=== PATIENT | female | born 1980 | race Caucasian/White ===

== ENCOUNTER 2016-10-16 22:30 | Inpatient (IN) | payer BC ==
[~2016-10-16] VITALS: Ht 170.2 cm; Wt 81.2 kg
--- NOTE | 2016-10-16 23:09 | Emergency Room Report ---
History of Present Illness General Chief Complaint: Abdominal Pain Source: Patient Present Illness HPI Is a 36-year-old female who presents with chief complaint of severe abdominal pain with nausea, vomiting, and diarrhea. Onset for last 2 days. Vomiting is nonbloody and nonbilious. Diarrhea is profuse and watery. It is constant. She is currently taking Keflex, Bactrim, clindamycin for a wound infection of her right ring finger. Is placed on by urgent care 2 days ago. Culture was sent already. Pain is severe, 10 out of 10. Diffuse in nature. No radiation. Nothing made it better. Nothing made it worse. Allergies: Coded Allergies: No Known Allergies (Unverified , 10/16/16) Patient History Past Medical History: see triage record, old chart reviewed Past Surgical History: other Pertinent Family History: none Social History: Denies: drug use Last Menstrual Period: 09/20/16 Now: No Immunizations: other Reviewed Nursing Documentation: PMH: Agreed, PSxH: Agreed Nursing Documentation-PMH Hx Hypertension: Yes Review of Systems Eye: Denies: blurred vision, eye pain ENT: Denies: ear pain, nose congestion, throat swelling Respiratory: Denies: cough, shortness of breath Cardiovascular: Denies: chest pain, palpitations Gastrointestinal: Reports: abdominal pain, diarrhea, nausea, vomiting Musculoskeletal: Denies: back pain, joint pain Skin: Denies: rash Neurological: Denies: headache, numbness Endocrine: Denies: increased thirst, increased urine Hematologic/Lymphatic: Denies: easy bruising All Other Systems: negative except mentioned in HPI Physical Exam Vital Signs Date Time Temp Pulse Resp B/P Pulse Ox O2 Delivery O2 Flow Rate FiO2 10/16/16 22:48 Room Air vitals unremarkable. Sp02 EP Interpretation: reviewed, normal General Appearance: well appearing, no apparent distress, alert Head: normocephalic, atraumatic Eyes: bilateral eye EOMI, bilateral eye PERRL ENT: hearing grossly normal, normal pharynx Neck: full range of motion, supple, no meningismus Respiratory: chest non-tender, lungs clear, normal breath sounds Cardiovascular #1: regular rate, rhythm, no murmur Gastrointestinal: normal bowel sounds, no mass, no organomegaly, no bruit, non- distended, tenderness - diffuse Musculoskeletal: back normal, gait/station normal, normal range of motion, other - rt index finger: wound healing. no drainage. Swelling much better per patient. Psychiatric: mood/affect normal Skin: warm/dry Medical Decision Making Diagnostic Impression: Primary Impression: Abdominal pain Qualified Codes: R10.84 - Generalized abdominal pain Additional Impression: Vomiting and diarrhea ER Course Patient presents with intractable vomiting and diarrhea. Also with intractable abdominal pain. CT scan unremarkable. Labs unremarkable. Urine showed no ketones. Denies any recent IV heroin use. Last use was over 2 months ago. Doubt that this is C. difficile colitis. She is on 3 antibiotics for abscess. Because of continual pain, would need for pain control and IV fluid. Lab Results Impression labs unremarkable CT/MRI/US Diagnostic Results CT/MRI/US Diagnostic Results : Imaging Test Ordered: CT abdomen and pelvis Impression negative per radiologist. Last Vital Signs Date Time Temp Pulse Resp B/P Pulse Ox O2 Delivery O2 Flow Rate FiO2 10/16/16 22:48 Room Air Status: improved Disposition: ADMITTED INPATIENT Condition: Serious TATO SINGH M.D. Oct 16, 2016 23:09
[2016-10-16 23:15] VITALS: BP 142/98
[2016-10-16] MEDS ORDERED: Ketorolac 30mg Inj IV ONE (23:15)
[2016-10-16] MEDS ORDERED: HYDROmorphone 1mg/ml Carpuject IVP ONE (23:15)
[2016-10-16 23:44] LABS: BASOPHILS % (AUTO) 1.8 % (0.0-2.0); EOSINOPHILS % (AUTO) 2.1 % (0.0-3.0); LYMPHOCYTES % (AUTO) 37.6 % (20.0-45.0); MEAN CORPUSCULAR HEMOGLOBIN 28.5 PG (27.0-31.0); MEAN CORPUSCULAR HGB CONC 34.1 G/DL (32.0-36.0); MEAN CORPUSCULAR VOLUME 84 FL (80-99); MEAN PLATELET VOLUME 7.3 FL (6.5-10.1); MONOCYTES % (AUTO) 8.1 % (1.0-10.0); NEUTROPHILS % (AUTO) 50.4 % (45.0-75.0); PLATELET COUNT 469 K/UL (150-450); RED BLOOD COUNT 4.16 M/UL (4.20-5.40); RED CELL DISTRIBUTION WIDTH 14.4 % (11.6-14.8); WHITE BLOOD COUNT 8.4 K/UL (4.8-10.8)
[2016-10-17] VITALS (7 sets, daily range): BP systolic 101–132; BP diastolic 64–99
[2016-10-17 00:01] LABS: ALANINE AMINOTRANSFERASE 14 U/L (3-33); ALBUMIN/GLOBULIN RATIO 1.4 (1.0-2.7); ANION GAP 19 (5-15); ASPARTATE AMINO TRANSFERASE 16 U/L (5-40); CALCIUM 9.6 mg/dL (8.6-10.2); CARBON DIOXIDE 21 mEQ/L (20-30); CHLORIDE 98 mEQ/L (98-107); CREATININE 0.8 mg/dL (0.5-0.9); GLOMERULAR FILTRATION RATE > 60 mL/min (>60); HEMOLYSIS 12; LIPASE 35 U/L (< 60); POTASSIUM 4.1 mEQ/L (3.4-4.9); SODIUM 138 mEQ/L (135-145); TOTAL PROTEIN 7.3 g/dL (6.6-8.7)
[2016-10-17] MEDS ORDERED: HYDROmorphone 1mg/ml Carpuject IVP ONE ×2 (00:15→03:45)
[2016-10-17 00:53] LABS: APPEARANCE,URINE CLEAR; KETONES,URINE NEGATIVE (NEGATIVE); LEUKOCYTE ESTERASE ,URINE NEGATIVE (NEGATIVE); NITRITE,URINE NEGATIVE (NEGATIVE); PH,URINE 5 (4.5-8.0); PROTEIN,URINE NEGATIVE (NEGATIVE); UROBILINOGEN,URINE NORMAL MG/DL (0.0-1.0)
[2016-10-17] MEDS ORDERED: Bacitracin Oint UD TOPIC ONE (03:00)
[2016-10-17] MEDS ORDERED: PRILOSEC10 M1 ORAL (03:27)
[2016-10-17] MEDS ORDERED: LEXAPRO20 MG ORAL (03:32)
[2016-10-17] MEDS ORDERED: Metoclopramide 10mg/2ml Inj IVP ONE (03:45)
[2016-10-17] MEDS ORDERED: DOXEPIN HCL100 MG ORAL (04:06)
[2016-10-17] MEDS ORDERED: BACTRIM10 ML BC (04:06)
[2016-10-17] MEDS ORDERED: TRAZODONE HCL100 MG ORAL (04:06)
[2016-10-17] MEDS ORDERED: CLONIDINE HCL0.1 MG PO (04:06)
[2016-10-17] MEDS ORDERED: GABAPENTIN600 MG ORAL (04:06)
[2016-10-17] MEDS ORDERED: CLEOCIN150 MG ORAL (04:06)
[2016-10-17] MEDS ORDERED: TOPAMAX100 MG ORAL (04:06)
[2016-10-17] MEDS ORDERED: METHYLPREDNISOLO4 M2 PO (04:06)
[2016-10-17] MEDS ORDERED: AZITHROMYCIN500 MG ORAL (04:06)
[2016-10-17] MEDS ORDERED: HYDROmorphone 1mg/ml Carpuject IVP PRN (05:15)
[2016-10-17] MEDS ORDERED: DiphenhydrAMINE 50mg/ml Inj IVP PRN (05:15)
[2016-10-17] MEDS: D5NS 1,000 ML IV SCH ×3 (06:32→20:30)
[2016-10-17] MEDS: HYDROmorphone 1mg/ml Carpuject IVP PRN ×3 (07:01→19:34)
--- NOTE | 2016-10-17 08:19 | History and Physical Report ---
DATE OF ADMISSION: 10/17/2016 CHIEF COMPLAINT: Abdominal pain, nausea, and vomiting. HISTORY OF PRESENT ILLNESS: The patient is a 36-year-old female. She has history of diverticulitis, hypertension, panic disorder, depression, questionable thyroid disorder, who presented with complaints of 3 days of intractable nausea, vomiting, and diarrhea. According to the patient, she was recently treated for bronchitis, ear infection, and Staph finger infection. Noted the onset of diarrhea, nausea, and vomiting. It has just been protracted. It has not improved. On evaluation in emergency room, her white count was 8.4. Urine was clear. Beta HCG was negative. She had CAT scan, preliminary report of that was unremarkable. the patient's persistent intractable nausea and vomiting, she is now admitted for further evaluation and care. PAST MEDICAL HISTORY: As above. PAST SURGICAL HISTORY: Includes vertical gastrectomy and lymph node dissection in the back. CURRENT MEDICATIONS: Reconciled and reviewed. ALLERGIES: Include mold and cats. FAMILY HISTORY: Noncontributory. SOCIAL HISTORY: The patient is a smoker. No alcohol. No drugs. REVIEW OF SYSTEMS: Negative except for intractable abdominal pain, nausea, and vomiting. PHYSICAL EXAMINATION: VITAL SIGNS: Temperature 98.2, blood pressure 130/99, pulse 94, respirations 16. GENERAL: The patient is in no apparent stress. HEART: Regular rate and rhythm. LUNGS: Clear. ABDOMEN: Soft, diffusely tender, but there is no rebound or guarding. EXTREMITIES: She has no clubbing, cyanosis, or edema. LABORATORY AND DIAGNOSTIC DATA: CT scan preliminary report was negative. White count 8, hemoglobin 12, hematocrit 34, and platelet count 469,000. Sodium was 138 and potassium was 4. ASSESSMENT AND PLAN: This is a pleasant female admitted with intractable abdominal pain, nausea, vomiting, diarrhea, unclear etiology. Possibilities include possible Clostridium difficile related to her recent antibiotic usage. Laboratory reviewed and her CAT scan. Intravenous fluids will be ordered. We will hydrate aggressively. PPI treatment. Antiemetic therapy. Check stool for C. difficile. IV pain medications. Kei Rodriguez M.D. DR: Jackson JOB#: [id number] CC:
[2016-10-17] MEDS: Topiramate 100mg tab ORAL SCH ×2 (08:31→20:33)
[2016-10-17] MEDS ORDERED: Pantoprazole Inj IVP SCH (09:00)
[2016-10-17 09:52] LABS: LYMPHOCYTES % (AUTO) 38.5 % (20.0-45.0); MEAN CORPUSCULAR HEMOGLOBIN 28.2 PG (27.0-31.0); MEAN CORPUSCULAR VOLUME 85 FL (80-99); MEAN PLATELET VOLUME 7.4 FL (6.5-10.1); MONOCYTES % (AUTO) 10.4 % (1.0-10.0); NEUTROPHILS % (AUTO) 45.3 % (45.0-75.0); PLATELET COUNT 396 K/UL (150-450); RED BLOOD COUNT 3.85 M/UL (4.20-5.40); WHITE BLOOD COUNT 7.3 K/UL (4.8-10.8)
[2016-10-17 10:09] LABS: ANION GAP 15 (5-15); CALCIUM 8.9 mg/dL (8.6-10.2); CARBON DIOXIDE 20 mEQ/L (20-30); CHLORIDE 102 mEQ/L (98-107); CREATININE 0.8 mg/dL (0.5-0.9); GLOMERULAR FILTRATION RATE > 60 mL/min (>60); HEMOLYSIS 10; POTASSIUM 4.3 mEQ/L (3.4-4.9); SODIUM 137 mEQ/L (135-145)
[2016-10-17] MEDS: LORazepam Inj 2mg/ml 1ml IV PRN ×3 (10:20→21:47)
--- NOTE | 2016-10-17 11:39 | General Progress Note ---
Assessment/Plan Assessment/Plan Assessment - Abd pain - N/V - Diarrhea - Chronic pain - s/p gastric reduction surgery Recommendation - Add flagyl - check stool w/u - follow exam Thank you Barbara Subjective Allergies: Coded Allergies: No Known Allergies (Unverified , 10/16/16) Objective Last 24 Hour Vital Signs Date Time Temp Pulse Resp B/P Pulse Ox O2 Delivery O2 Flow Rate FiO2 10/17/16 08:32 101/80 10/17/16 08:08 97.7 88 20 101/80 95 Room Air 10/17/16 07:31 99.0 10/17/16 04:29 99.0 94 18 104/64 92 Room Air 10/17/16 03:45 98.2 89 15 128/98 100 Room Air 10/17/16 03:45 98.4 89 15 128/98 100 Room Air 10/17/16 02:22 98.2 10/17/16 01:30 94 16 130/99 100 Room Air 10/17/16 00:49 98.2 10/17/16 00:08 98.2 10/16/16 23:15 98.4 96 16 142/98 100 Room Air 10/16/16 22:48 98.2 133 15 146/101 96 Room Air Intake and Output 10/16/16 10/17/16 19:00 07:00 Intake Total 300 ml Output Total 200 ml Balance 100 ml Intake Oral 300 ml Output Emesis 200 ml # Voids 3 Laboratory Tests 10/16/16 23:36: White Blood Count 8.4, Red Blood Count 4.16L, Hemoglobin 11.9L, Hematocrit 34.8L , Mean Corpuscular Volume 84, Mean Corpuscular Hemoglobin 28.5, Mean Corpuscular Hemoglobin Concent 34.1, Red Cell Distribution Width 14.4, Platelet Count 469H, Mean Platelet Volume 7.3, Neutrophils (%) (Auto) 50.4, Lymphocytes ( %) (Auto) 37.6, Monocytes (%) (Auto) 8.1, Eosinophils (%) (Auto) 2.1, Basophils (%) (Auto) 1.8, Sodium Level 138, Potassium Level 4.1, Chloride Level 98, Carbon Dioxide Level 21, Anion Gap 19H, Blood Urea Nitrogen 8, Creatinine 0.8, Estimat Glomerular Filtration Rate > 60, Glucose Level 102, Calcium Level 9.6, Total Bilirubin < 0.2, Aspartate Amino Transf (AST/SGOT) 16, Alanine Aminotransferase (ALT/SGPT) 14, Alkaline Phosphatase 65, Total Protein 7.3, Albumin 4.3, Globulin 3.0, Albumin/Globulin Ratio 1.4, Lipase 35 10/17/16 00:25: Urine Color Yellow, Urine Appearance Clear, Urine pH 5, Urine Specific Russell 1.015, Urine Protein Negative, Urine Glucose (UA) Negative, Urine Ketones Negative, Urine Occult Blood Negative, Urine Nitrite Negative, Urine Bilirubin Negative, Urine Urobilinogen Normal, Urine Leukocyte Esterase Negative, Urine HCG, Qualitative Negative 10/17/16 09:30: White Blood Count 7.3, Red Blood Count 3.85L, Hemoglobin 10.9L, Hematocrit 32.9L , Mean Corpuscular Volume 85, Mean Corpuscular Hemoglobin 28.2, Mean Corpuscular Hemoglobin Concent 33.0, Red Cell Distribution Width 14.0, Platelet Count 396, Mean Platelet Volume 7.4, Neutrophils (%) (Auto) 45.3, Lymphocytes (% ) (Auto) 38.5, Monocytes (%) (Auto) 10.4H, Eosinophils (%) (Auto) 4.0H, Basophils (%) (Auto) 2.0, Sodium Level 137, Potassium Level 4.3, Chloride Level 102, Carbon Dioxide Level 20, Anion Gap 15, Blood Urea Nitrogen 8, Creatinine 0.8, Estimat Glomerular Filtration Rate > 60, Glucose Level 95, Calcium Level 8.9 Height (Feet): 5 Height (Inches): 7.00 Weight (Pounds): 180 EPHRAIM CHRISTIE Oct 17, 2016 11:39
[2016-10-17] MEDS ORDERED: metroNIDAZOLE 500mg 100 ML IVPB SCH (14:00)
[2016-10-17] MEDS: metroNIDAZOLE 500mg 100 ML IVPB SCH ×2 (15:00→21:47)
[2016-10-17] MEDS ORDERED: D5NS 1000ml IV ONE (15:16)
[2016-10-17] MEDS: Metoclopramide 10mg/2ml Inj IVP PRN (15:58)
--- NOTE | 2016-10-17 20:29 | Consultation ---
DATE OF CONSULTATION: 10/17/2016 INFECTIOUS DISEASES CONSULTATION: CONSULTING PHYSICIAN: Alexa Govea M.D. REFERRING PHYSICIAN: Kei Rodriguez M.D. REASON FOR CONSULTATION: Possible Clostridium difficile colitis. HISTORY OF PRESENTING ILLNESS: This is a 36-year-old lady with history of diverticulitis, hypertension, anxiety, and panic disorder, who came in with nausea, vomiting, abdominal pain, and diarrhea. She recently had bronchitis and ear infection and was on antibiotics and Infectious Diseases consultation has been obtained for antibiotics. PAST MEDICAL HISTORY: 1. History of vertical gastrectomy. 2. History of lymph node dissection in the neck. 3. History of tummy tuck. 4. History of hypertension. 5. Diverticulitis. 6. Panic disorder. MEDICATIONS: As an inpatient, she is on trazodone, lorazepam, Dilaudid, Protonix, clonidine, Neurontin, Topamax, Reglan, Zofran, Benadryl, and Tylenol. ALLERGIES: No known drug allergies. SOCIAL HISTORY: She is a smoker. She does not drink alcohol or use drugs. FAMILY HISTORY: Noncontributory. REVIEW OF SYSTEMS: Respiratory: She had fever and chills. She does complain of some shortness of breath and cough. No chest pain. Cardiac: No chest pain. No palpitations. No dizziness. No syncope. Gastrointestinal: She has nausea and vomiting. She complains of left-sided abdominal pain and diarrhea. PHYSICAL EXAMINATION: VITAL SIGNS: Temperature is 97.7 degrees, T-max of 99 degrees, pulse of 88, respiratory rate 20, blood pressure 101/80, and O2 saturation of 95%. HEENT: Pupils are equally reactive to light and accommodation. Mouth appears clean without thrush. NECK: Supple. No adenopathy. No JVD. CARDIOVASCULAR: Regular rate and rhythm. No murmurs. LUNGS: Clear to auscultation bilaterally. No crackles. No wheezes. ABDOMEN: Soft. Left-sided lower quadrant tenderness noted. No organomegaly. EXTREMITIES: No cyanosis, no clubbing, and no edema. LABORATORY DATA: White count is 7.3, hemoglobin 10.9, hematocrit 32.9, MCV 85, and platelet count of 396,000. Sodium is 137, potassium 4.6, chloride 102, bicarbonate 20, BUN 8, creatinine 0.8, glucose 95, calcium 8.9, total bilirubin less than 0.2, AST 16, ALT 14, and alkaline phosphatase 65. Total protein is 7.3 and albumin 4.3. Lipase is 35. UA is showing LE negative and nitrite negative. DIAGNOSTIC DATA: CT of the abdomen and pelvis was unremarkable. ASSESSMENT: 1. This is a 36-year-old lady with history of hypertension and diverticulitis who comes in with abdominal pain, nausea, vomiting, and diarrhea, would be concerned regarding Clostridium difficile colitis as a possibility. 2. We would be concerned regarding recurrent diverticulitis. 3. We would also be concerned regarding gastroenteritis. PLAN: 1. We will order stool for ova and parasites. 2. We will order for stool culture. 3. We will order stool for Clostridium difficile colitis. 4. We will start the patient on cefepime and Flagyl. 5. We will follow up CT abdomen results. I would like to thank, Dr. Rodriguez for this consultation. Alexa Govea M.D. DR: Larissa JOB#: [id number] CC: Kei Rodriguez M.D.
--- NOTE | 2016-10-17 20:59 | Consultation ---
DATE OF CONSULTATION: 10/17/2016 GASTROLOGY CONSULTATION: CONSULTING PHYSICIAN: Tae Jimenez M.D. REFERRING PHYSICIAN: Kei Rodriguez M.D. CHIEF COMPLAINT: I have been asked to see this patient by Dr. Kei Rodriguez for evaluation of nausea, vomiting, diarrhea, and abdominal pain. HISTORY OF PRESENT ILLNESS: The patient is a 36-year-old white woman with a history of morbid obesity, who underwent vertical ring volume reduction gastroplasty about 10 years ago. She subsequently had pelvic abdominoplasty to remove the dense skin, which was complicated by an bladder infection, status post requiring long hospitalization. This was again many years ago. She now comes in for acute onset of nausea, vomiting, diarrhea, and abdominal pain over the past three days. The patient does not have any contact with the same complaints. Her diarrhea is nonbloody and her emesis is coffee-ground. She points to the left upper quadrant area for discomfort. The patient also has chronic back pain and for that she is on Neurontin and the patient is also on trazodone for her sleep-disorder. This patient also recently received a course of antibiotics including Bactrim and Keflex for finger Staph infection. The antibiotic was started three days prior to onset of vomiting. PAST MEDICAL HISTORY: History of morbid obesity, status post bariatric surgery, history of chronic back pain, and history of sleeping disorder, treated with trazodone. ALLERGIES: No known drug allergies. MEDICATIONS: See chart for details. FAMILY HISTORY: Noncontributory. SOCIAL HISTORY: The patient does smoke a pack of cigarettes a day. She does not drink alcohol or use drugs. She lives in [facility]. REVIEW OF SYSTEMS: Otherwise negative. PHYSICAL EXAMINATION: GENERAL: The patient is a pleasant, white woman, seen in her room. HEENT: Normocephalic and atraumatic. Sclerae are anicteric. Oropharynx is clear. NECK: Supple. CHEST: Clear to auscultation. CARDIOVASCULAR: Regular rhythm and rate. ABDOMEN: Soft with left upper quadrant abdominal tenderness to palpation without guarding or rebound. There is a lower abdominal scar, which is old. EXTREMITIES: Revealed no edema. LABORATORY DATA: Noted. ASSESSMENT: This patient presents with abdominal pain, nausea, vomiting, and diarrhea, which is somewhat acute, duration for three days. She started her antibiotics three days prior to onset of these symptoms, now Clostridium difficile is possible as somewhat more likely to come so rapidly and so much vomiting. Viral gastroenteritis would be more likely possibility. The patient's symptoms should resolve with supportive management. I will also check the patient's stool for cultures and Clostridium difficile and occult blood. IV hydration should be given as well. RECOMMENDATIONS: 1. Intravenous hydration. 2. Follow laboratory parameters and exam. 3. Check stool cultures and Clostridium difficile and occult blood. 4. Further evaluation, should symptoms persist. Thank you for asking me to participate in the care of this patient. Tae Jimenez M.D. DR: Lolly JOB#: [id number] CC:
[2016-10-17] MEDS ORDERED: TraZODone 100mg tab ORAL SCH (21:00)
[2016-10-18] VITALS: BP 117/65
[2016-10-18] MEDS: HYDROmorphone 1mg/ml Carpuject IVP PRN ×2 (00:03→10:27)
[2016-10-18] MEDS: LORazepam Inj 2mg/ml 1ml IV PRN ×2 (01:50→11:23)
[2016-10-18] MEDS: Metoclopramide 10mg/2ml Inj IVP PRN ×2 (01:57→10:26)
[2016-10-18 04:00] VITALS: BP 98/68
[2016-10-18] MEDS: D5NS 1,000 ML IV SCH ×3 (05:18→18:53)
[2016-10-18] MEDS: metroNIDAZOLE 500mg 100 ML IVPB SCH ×3 (05:18→22:57)
--- NOTE | 2016-10-18 05:35 | General Progress Note ---
Assessment/Plan Problem List: (1) Anxiety disorder ICD Codes: F41.9 - Anxiety disorder, unspecified SNOMED: 491990608 (2) Depression ICD Codes: F32.9 - Major depressive disorder, single episode, unspecified SNOMED: 43206120 (3) Dehydration ICD Codes: E86.0 - Dehydration SNOMED: 05404790 (4) Abdominal pain ICD Codes: R10.9 - Unspecified abdominal pain SNOMED: 39379890 Qualifiers: Qualified Codes: R10.84 - Generalized abdominal pain (5) Vomiting and diarrhea ICD Codes: R11.10 - Vomiting, unspecified; R19.7 - Diarrhea, unspecified SNOMED: 195960967 Status: stable, progressing Assessment/Plan cont ivf iv pain meds and antiemetics follow up cultures follow up ct- prelim report negative psych eval called Subjective ROS Limited/Unobtainable: No Constitutional: Reports: malaise, weakness HEENT: Reports: no symptoms Cardiovascular: Reports: no symptoms Respiratory: Reports: no symptoms Gastrointestinal/Abdominal: Reports: abdominal pain, diarrhea, vomiting Genitourinary: Reports: no symptoms Neurologic/Psychiatric: Reports: no symptoms Endocrine: Reports: no symptoms Hematologic/Lymphatic: Reports: no symptoms Allergies: Coded Allergies: No Known Allergies (Unverified , 10/16/16) All Systems: reviewed and negative except above Subjective slightly less abd pain, diarrhea and vomiting. c/o anxiety. GI and ID noted. Objective Last 24 Hour Vital Signs Date Time Temp Pulse Resp B/P Pulse Ox O2 Delivery O2 Flow Rate FiO2 10/18/16 04:00 97.3 77 18 98/68 98 Room Air 10/18/16 00:00 97.3 90 18 117/65 96 Room Air 10/17/16 20:34 119/69 10/17/16 20:07 99.3 102 21 119/69 99 Room Air 10/17/16 16:00 98.7 93 20 123/78 96 Room Air 10/17/16 12:55 97.9 92 19 132/77 97 Room Air 10/17/16 12:54 97.9 10/17/16 08:32 101/80 10/17/16 08:08 97.7 88 20 101/80 95 Room Air 10/17/16 07:31 99.0 Intake and Output 10/17/16 10/18/16 19:00 07:00 Intake Total 1390 ml 1300 ml Output Total 150 ml Balance 1240 ml 1300 ml Intake Oral 240 ml 500 ml IV Total 1150 ml 800 ml Output Emesis 150 ml # Voids 2 2 Laboratory Tests 10/17/16 09:30: White Blood Count 7.3, Red Blood Count 3.85L, Hemoglobin 10.9L, Hematocrit 32.9L , Mean Corpuscular Volume 85, Mean Corpuscular Hemoglobin 28.2, Mean Corpuscular Hemoglobin Concent 33.0, Red Cell Distribution Width 14.0, Platelet Count 396, Mean Platelet Volume 7.4, Neutrophils (%) (Auto) 45.3, Lymphocytes (% ) (Auto) 38.5, Monocytes (%) (Auto) 10.4H, Eosinophils (%) (Auto) 4.0H, Basophils (%) (Auto) 2.0, Sodium Level 137, Potassium Level 4.3, Chloride Level 102, Carbon Dioxide Level 20, Anion Gap 15, Blood Urea Nitrogen 8, Creatinine 0.8, Estimat Glomerular Filtration Rate > 60, Glucose Level 95, Calcium Level 8.9 Height (Feet): 5 Height (Inches): 7.00 Weight (Pounds): 180 General Appearance: WD/WN, alert Neck: supple Cardiovascular: regular rhythm Respiratory/Chest: lungs clear Abdomen: normal bowel sounds, non tender, soft, no organomegaly Edema: no edema noted Arm (L), no edema noted Arm (R), no edema noted Leg (L), no edema noted Leg (R), no edema noted Pedal (L), no edema noted Pedal (R), no edema noted Generalized TONA SANCHEZ Oct 18, 2016 05:35
[2016-10-18 07:16] LABS: ALANINE AMINOTRANSFERASE 9 U/L (3-33); ALBUMIN/GLOBULIN RATIO 1.2 (1.0-2.7); ANION GAP 11 (5-15); ASPARTATE AMINO TRANSFERASE 11 U/L (5-40); CALCIUM 8.4 mg/dL (8.6-10.2); CARBON DIOXIDE 22 mEQ/L (20-30); CHLORIDE 107 mEQ/L (98-107); CREATININE 0.6 mg/dL (0.5-0.9); GLOMERULAR FILTRATION RATE > 60 mL/min (>60); HEMOLYSIS 6; POTASSIUM 3.7 mEQ/L (3.4-4.9); SODIUM 140 mEQ/L (135-145); TOTAL PROTEIN 5.3 g/dL (6.6-8.7)
[2016-10-18 08:00] VITALS: BP 108/64
[2016-10-18] MEDS: Topiramate 100mg tab ORAL SCH ×2 (10:27→20:23)
--- NOTE | 2016-10-18 11:19 | Infectious Diseases Prog Note ---
Assessment/Plan Assessment/Plan antibiotics : cefepime, flagyl A 1. ? c.diff colitis ? gastroenteritis ? diverticulitis 2. HTN P 1. continue cefepime, flagyl 2. will follow up cultures Subjective Constitutional: Denies: chills, fever Respiratory: Reports: dry cough, shortness of breath Gastrointestinal/Abdominal: Reports: nausea, vomiting, Denies: diarrhea Musculoskeletal: Reports: pain - in abdomen Allergies: Coded Allergies: No Known Allergies (Unverified , 10/16/16) Objective Vital Signs Last 24 Hour Vital Signs Date Time Temp Pulse Resp B/P Pulse Ox O2 Delivery O2 Flow Rate FiO2 10/18/16 08:59 108/64 10/18/16 08:00 96.8 71 18 108/64 98 Room Air 10/18/16 04:00 97.3 77 18 98/68 98 Room Air 10/18/16 00:00 97.3 90 18 117/65 96 Room Air 10/17/16 20:34 119/69 10/17/16 20:07 99.3 102 21 119/69 99 Room Air 10/17/16 16:00 98.7 93 20 123/78 96 Room Air 10/17/16 12:55 97.9 92 19 132/77 97 Room Air 10/17/16 12:54 97.9 Height (Feet): 5 Height (Inches): 7.00 Weight (Pounds): 180 Respiratory/Chest: lungs clear Cardiovascular: normal rate, regular rhythm, no gallop/murmur Abdomen: tender - left side Extremities: no edema Laboratory Tests Test 10/18/16 05:00 Sodium Level 140 mEQ/L (135-145) Potassium Level 3.7 mEQ/L (3.4-4.9) Chloride Level 107 mEQ/L (98-107) Carbon Dioxide Level 22 mEQ/L (20-30) Anion Gap 11 (5-15) Blood Urea Nitrogen 5 mg/dL (7-23) L Creatinine 0.6 mg/dL (0.5-0.9) Estimat Glomerular Filtration Rate > 60 mL/min (>60) Glucose Level 82 mg/dL (74-106) Calcium Level 8.4 mg/dL (8.6-10.2) L Total Bilirubin < 0.2 mg/dL (0.0-1.2) Aspartate Amino Transf (AST/SGOT) 11 U/L (5-40) Alanine Aminotransferase (ALT/SGPT) 9 U/L (3-33) Alkaline Phosphatase 49 U/L (35-104) Total Protein 5.3 g/dL (6.6-8.7) L Albumin 2.9 g/dL (3.5-5.2) L Globulin 2.4 g/dL Albumin/Globulin Ratio 1.2 (1.0-2.7) SERA WALDROP Oct 18, 2016 11:18
[2016-10-18 12:00] VITALS: BP 109/65
--- NOTE | 2016-10-18 12:21 | Consultation ---
History of Present Illness General Chief Complaint: Abdominal Pain Present Illness HPI 36-year-old female with history of diverticulitis, hypertension, panic disorder , depression, questionable thyroid disorder, who presented with complaints of 3 days of intractable nausea, vomiting, and diarrhea. The pt is presenting with depressed mood, anhedonia, insomnia, sever anxiety and psychomotor agitation. the pt has been on Doxepin which improves her insomnia. The pt denied suicidal ideation. no manic or psychotic sxs currently or in the past. Allergies: Coded Allergies: No Known Allergies (Unverified , 10/16/16) Medication History Scheduled Azithromycin (Azithromycin), Unknown Dose ORAL DAILY, (Reported) Doxepin Hcl (Doxepin Hcl*), 100 MG ORAL BEDTIME, (Reported) Escitalopram Oxalate* (Lexapro*), 30 MG ORAL DAILY, (Reported) Gabapentin* (Gabapentin*), 600 MG ORAL THREE TIMES A DAY, (Reported) Omeprazole Magnesium (Prilosec), 40 MG ORAL BID, (Reported) Topiramate (Topamax), 100 MG ORAL EVERY 12 HOURS, (Reported) Trazodone Hcl* (Desyrel*), 100 MG ORAL BEDTIME, (Reported) Miscellaneous Medications Clindamycin HCl (Clindamycin HCl), Unknown Dose ORAL, (Reported) Clonidine Hcl (Clonidine Hcl), 0.1 MG PO, (Reported) Methylprednisolone (Methylprednisolone), Unknown Dose PO, (Reported) Trimethoprim/Sulfamethoxazole (Bactrim), Unknown Dose BC, (Reported) Patient History Healthcare decision maker Resuscitation status Full Code Advanced Directive on File No Past Medical/Surgical History Past Medical/Surgical History: (1) Dehydration (2) Anxiety disorder (3) Depression (4) Abdominal pain (5) Vomiting and diarrhea Family History Family History: (1) Anxiety disorder (2) Depression Review of Systems Constitutional: Reports: weakness Gastrointestinal: Reports: nausea, vomiting Psychiatric: Reports: anxiety, depressed feelings, emotional problems, prior hx Physical Exam General Appearance: alert, moderate distress, thin Neurologic: alert, oriented x 3, responsive, depressed affect Last 24 Hour Vital Signs Date Time Temp Pulse Resp B/P Pulse Ox O2 Delivery O2 Flow Rate FiO2 10/18/16 08:59 108/64 10/18/16 08:00 96.8 71 18 108/64 98 Room Air 10/18/16 04:00 97.3 77 18 98/68 98 Room Air 10/18/16 00:00 97.3 90 18 117/65 96 Room Air 10/17/16 20:34 119/69 10/17/16 20:07 99.3 102 21 119/69 99 Room Air 10/17/16 16:00 98.7 93 20 123/78 96 Room Air 10/17/16 12:55 97.9 92 19 132/77 97 Room Air 10/17/16 12:54 97.9 Intake and Output 10/17/16 10/18/16 19:00 07:00 Intake Total 1390 ml 2650 ml Output Total 150 ml Balance 1240 ml 2650 ml Intake Oral 240 ml 500 ml IV Total 1150 ml 1150 ml Tube Feeding 1000 ml Output Emesis 150 ml # Voids 2 4 Laboratory Tests Test 10/18/16 05:00 Sodium Level 140 mEQ/L (135-145) Potassium Level 3.7 mEQ/L (3.4-4.9) Chloride Level 107 mEQ/L (98-107) Carbon Dioxide Level 22 mEQ/L (20-30) Anion Gap 11 (5-15) Blood Urea Nitrogen 5 mg/dL (7-23) L Creatinine 0.6 mg/dL (0.5-0.9) Estimat Glomerular Filtration Rate > 60 mL/min (>60) Glucose Level 82 mg/dL (74-106) Calcium Level 8.4 mg/dL (8.6-10.2) L Total Bilirubin < 0.2 mg/dL (0.0-1.2) Aspartate Amino Transf (AST/SGOT) 11 U/L (5-40) Alanine Aminotransferase (ALT/SGPT) 9 U/L (3-33) Alkaline Phosphatase 49 U/L (35-104) Total Protein 5.3 g/dL (6.6-8.7) L Albumin 2.9 g/dL (3.5-5.2) L Globulin 2.4 g/dL Albumin/Globulin Ratio 1.2 (1.0-2.7) Height (Feet): 5 Height (Inches): 7.00 Weight (Pounds): 180 Medications Current Medications Medications (Trade) Dose Ordered Sig/Markell Route PRN Reason Start Time Stop Time Status Last Admin Dose Admin Acetaminophen (Tylenol) 650 mg Q4H PRN ORAL Mild Pain/Temp > 100.5 10/17/16 05:15 11/16/16 05:14 10/18/16 01:50 Bisacodyl (Dulcolax) 10 mg DAILYPRN PRN RECTAL Constipation 10/18/16 12:15 11/17/16 12:14 UNV Cefepime HCl 1 gm/ Dextrose 50 ml @ 100 mls/hr Q12HR IVPB 10/17/16 12:30 10/24/16 12:29 10/18/16 10:26 Clonidine HCl (Catapres) 0.1 mg EVERY 12 HOURS ORAL 10/17/16 09:00 11/16/16 08:59 Dextrose/Sodium Chloride (D5ns) 1,000 ml @ 125 mls/hr Q8H IV 10/17/16 05:15 11/16/16 05:14 10/18/16 05:18 Diphenhydramine HCl (Benadryl) 25 mg Q4H PRN IVP Itching 10/17/16 05:15 11/16/16 05:14 Escitalopram Oxalate (Lexapro) 30 mg DAILY ORAL 10/19/16 09:00 11/18/16 08:59 UNV Gabapentin (Neurontin) 600 mg THREE TIMES A DAY ORAL 10/17/16 09:00 11/16/16 08:59 10/18/16 10:26 Hydromorphone HCl (Dilaudid) 2 mg Q4H PRN IVP Severe Pain (Pain Scale 7-10) 10/18/16 13:15 10/25/16 13:14 UNV Lorazepam 1 mg 1 mg Q4H PRN IV For Anxiety 10/17/16 10:00 10/24/16 09:59 10/18/16 11:23 Magnesium Hydroxide (Mom) 30 ml TIDPRN PRN ORAL Constipation 10/18/16 12:15 11/17/16 12:14 UNV Metoclopramide HCl (Reglan) 10 mg Q8H PRN IVP Nausea & Vomiting 10/17/16 06:30 11/16/16 06:29 10/18/16 10:26 Metronidazole (Flagyl) 100 ml @ 100 mls/hr EVERY 8 HOURS IVPB 10/17/16 14:00 10/24/16 13:59 10/18/16 05:18 Nicotine (Nicoderm) 1 patch DAILY@1800 TDERMAL 10/17/16 19:00 11/16/16 18:59 Ondansetron HCl (Zofran) 4 mg Q4H PRN IVP Nausea & Vomiting 10/17/16 05:15 11/16/16 05:14 10/17/16 21:47 Pantoprazole (Protonix) 40 mg EVERY 12 HOURS ORAL 10/17/16 09:00 11/16/16 08:59 10/18/16 10:27 Topiramate (Topamax) 100 mg EVERY 12 HOURS ORAL 10/17/16 09:00 11/16/16 08:59 10/18/16 10:27 Trazodone HCl (Desyrel) 100 mg BEDTIME ORAL 10/17/16 21:00 11/16/16 20:59 10/17/16 21:47 Assessment/Plan Status: not improved Assessment/Plan MDD, anxiety disorder. panic disorder. - doxepin 100mg po qhs -dc ativan -start klonopin 2mg qhs. -change trazodone to prn Hannah Henriquez M.D. Oct 18, 2016 12:21
--- NOTE | 2016-10-18 12:56 | Diagnostic Imaging Report ---
Clinical Indication: Abdominal pain Technique: No oral contrast utilized, per emergency room physician request IV administration nonionic contrast. Venous phase spiral acquisition obtained through the abdomen and pelvis. Multiplanar reconstructions were generated. Total dose length product 775 mGycm. CTDIvol(s) 15 mGy Comparison: None Findings: The appendix is not clearly demonstrated, but there are no findings to suggest acute appendicitis. There is a diverticulum of the proximal transverse colon noted. No evidence of diverticulitis. No small bowel distention. No free or loculated intraperitoneal air or fluid. There is evidence of prior gastric surgery. The distal esophagus and duodenum are unremarkable. The gallbladder is unremarkable, other than being somewhat distended. The liver, bile ducts, pancreas, spleen, adrenals, kidneys are unremarkable. The included lung bases demonstrate some scarring on the right, are otherwise clear. The bones are unremarkable. Impression: No acute or significant abnormality Right basilar pulmonary parenchymal scarring Evidence of prior gastric surgery This agrees with the preliminary interpretation provided overnight by [facility]erad[facility] service. The CT scanner at [facility] is accredited by the [employer] and the scans are performed using protocols designed to limit radiation exposure to as low as reasonably achievable to attain images of sufficient resolution adequate for diagnostic evaluation.
[2016-10-18] MEDS ORDERED: Milk of Magnesia 30ml Ud ORAL PRN (14:30)
--- NOTE | 2016-10-18 15:58 | General Progress Note ---
Assessment/Plan Assessment/Plan Assessment - Abd pain - improving - N/V- resolved - Diarrhea - resolved - Chronic pain - s/p gastric reduction surgery Recommendation - flagyl - check stool w/u - follow exam Subjective Allergies: Coded Allergies: No Known Allergies (Unverified , 10/16/16) Subjective Feels better no N/V tolerating liquids Objective Last 24 Hour Vital Signs Date Time Temp Pulse Resp B/P Pulse Ox O2 Delivery O2 Flow Rate FiO2 10/18/16 12:00 95.4 80 18 109/65 98 Room Air 10/18/16 08:59 108/64 10/18/16 08:00 96.8 71 18 108/64 98 Room Air 10/18/16 04:00 97.3 77 18 98/68 98 Room Air 10/18/16 00:00 97.3 90 18 117/65 96 Room Air 10/17/16 20:34 119/69 10/17/16 20:07 99.3 102 21 119/69 99 Room Air 10/17/16 16:00 98.7 93 20 123/78 96 Room Air Intake and Output 10/17/16 10/18/16 19:00 07:00 Intake Total 1390 ml 2650 ml Output Total 150 ml Balance 1240 ml 2650 ml Intake Oral 240 ml 500 ml IV Total 1150 ml 1150 ml Tube Feeding 1000 ml Output Emesis 150 ml # Voids 2 4 Laboratory Tests 10/18/16 05:00: Sodium Level 140, Potassium Level 3.7, Chloride Level 107, Carbon Dioxide Level 22, Anion Gap 11, Blood Urea Nitrogen 5L, Creatinine 0.6, Estimat Glomerular Filtration Rate > 60, Glucose Level 82, Calcium Level 8.4L, Total Bilirubin < 0.2, Aspartate Amino Transf (AST/SGOT) 11, Alanine Aminotransferase (ALT/SGPT) 9 , Alkaline Phosphatase 49, Total Protein 5.3L, Albumin 2.9L, Globulin 2.4, Albumin/Globulin Ratio 1.2 Height (Feet): 5 Height (Inches): 7.00 Weight (Pounds): 180 Objective WDWN NCAT supple CTA RRR Soft NT ND no edema Nonfocal EPHRAIM CHRISTIE Oct 18, 2016 15:58
[2016-10-18 16:00] VITALS: BP 116/61
[2016-10-18] MEDS ORDERED: Tubing IV Secondary IV ONE (17:22)
[2016-10-18] MEDS ORDERED: D5NS 1000ml IV ONE (17:56)
[2016-10-18 19:00] VITALS: BP 130/78
[2016-10-18] MEDS ORDERED: TraZODone 100mg tab ORAL PRN (21:00)
[2016-10-18] MEDS: Doxepin 25mg Cap ORAL SCH (22:34)
[2016-10-19] VITALS: BP 146/91
[2016-10-19] MEDS: LORazepam 1mg tab ORAL PRN ×3 (01:46→21:07)
[2016-10-19 03:53] VITALS: BP 132/88
[2016-10-19] MEDS: D5NS 1,000 ML IV SCH ×3 (05:07→21:08)
[2016-10-19] MEDS: metroNIDAZOLE 500mg 100 ML IVPB SCH ×3 (05:07→21:30)
[2016-10-19 08:00] VITALS: BP 149/89
[2016-10-19] MEDS: Topiramate 100mg tab ORAL SCH ×2 (09:09→20:11)
--- NOTE | 2016-10-19 09:18 | General Progress Note ---
Assessment/Plan Problem List: (1) Anxiety disorder ICD Codes: F41.9 - Anxiety disorder, unspecified SNOMED: 737816331 (2) Depression ICD Codes: F32.9 - Major depressive disorder, single episode, unspecified SNOMED: 67433315 (3) Dehydration ICD Codes: E86.0 - Dehydration SNOMED: 39102261 (4) Abdominal pain ICD Codes: R10.9 - Unspecified abdominal pain SNOMED: 23507270 Qualifiers: Qualified Codes: R10.84 - Generalized abdominal pain (5) Vomiting and diarrhea ICD Codes: R11.10 - Vomiting, unspecified; R19.7 - Diarrhea, unspecified SNOMED: 186155714 Status: stable, not improved, unchanged Assessment/Plan cont ivf iv pain meds and antiemetics follow up cultures follow up ct- prelim report negative message left with pmd to discuss case surgery eval Subjective ROS Limited/Unobtainable: No Constitutional: Reports: malaise, weakness HEENT: Reports: no symptoms Cardiovascular: Reports: no symptoms Respiratory: Reports: no symptoms Gastrointestinal/Abdominal: Reports: diarrhea, vomiting Genitourinary: Reports: no symptoms Neurologic/Psychiatric: Reports: no symptoms Endocrine: Reports: no symptoms Hematologic/Lymphatic: Reports: no symptoms Allergies: Coded Allergies: No Known Allergies (Unverified , 10/16/16) All Systems: reviewed and negative except above Subjective ?increased abd pain, slightly diarrhea and vomiting. c/o anxiety. GI and ID noted. Objective Last 24 Hour Vital Signs Date Time Temp Pulse Resp B/P Pulse Ox O2 Delivery O2 Flow Rate FiO2 10/19/16 08:27 132/88 10/19/16 08:00 97.9 114 20 149/89 95 Room Air 10/19/16 05:37 97.4 10/19/16 03:53 97.4 90 18 132/88 98 Room Air 10/19/16 00:00 97.6 110 18 146/91 98 Room Air 10/18/16 19:00 97.3 89 20 130/78 97 Room Air 10/18/16 16:00 96.8 97 20 116/61 97 Room Air 10/18/16 12:00 95.4 80 18 109/65 98 Room Air Intake and Output 10/18/16 10/19/16 19:00 07:00 Intake Total 1265 ml 1820 ml Balance 1265 ml 1820 ml Intake Oral 240 ml 695 ml IV Total 1025 ml 1125 ml # Voids 2 6 Height (Feet): 5 Height (Inches): 7.00 Weight (Pounds): 180 General Appearance: WD/WN, alert Neck: supple Cardiovascular: normal rate, regular rhythm Respiratory/Chest: lungs clear Abdomen: normal bowel sounds, non tender, soft, no organomegaly Edema: no edema noted Arm (L), no edema noted Arm (R), no edema noted Leg (L), no edema noted Leg (R), no edema noted Pedal (L), no edema noted Pedal (R), no edema noted 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
--- NOTE | 2016-10-19 10:50 | Infectious Diseases Prog Note ---
Assessment/Plan Assessment/Plan A 1. R/O c.difficile colitis, ? gastroenteritis 2. HPN 3. recent purulent cellulitis of 4th right finger P 1. continue cefepime, Flagyl 2. will follow up cultures Subjective ROS Limited/Unobtainable: No Gastrointestinal/Abdominal: Reports: nausea, other - abdomina pain in left side , vomiting Skin: Reports: other Musculoskeletal: Reports: pain Allergies: Coded Allergies: No Known Allergies (Unverified , 10/16/16) Objective Vital Signs Last 24 Hour Vital Signs Date Time Temp Pulse Resp B/P Pulse Ox O2 Delivery O2 Flow Rate FiO2 10/19/16 08:27 132/88 10/19/16 08:00 97.9 114 20 149/89 95 Room Air 10/19/16 05:37 97.4 10/19/16 03:53 97.4 90 18 132/88 98 Room Air 10/19/16 00:00 97.6 110 18 146/91 98 Room Air 10/18/16 19:00 97.3 89 20 130/78 97 Room Air 10/18/16 16:00 96.8 97 20 116/61 97 Room Air 10/18/16 12:00 95.4 80 18 109/65 98 Room Air Height (Feet): 5 Height (Inches): 7.00 Weight (Pounds): 180 General Appearance: no acute distress HEENT: mucous membranes moist Respiratory/Chest: lungs clear Cardiovascular: normal rate Abdomen: soft, non tender Extremities: no edema Skin: other - R fourth finger erythema Current Medications Medications (Trade) Dose Ordered Sig/Markell Route PRN Reason Start Time Stop Time Status Last Admin Dose Admin Acetaminophen (Tylenol) 650 mg Q4H PRN ORAL Mild Pain/Temp > 100.5 10/17/16 05:15 11/16/16 05:14 10/18/16 01:50 Bisacodyl (Dulcolax) 10 mg DAILYPRN PRN RECTAL Constipation 10/18/16 14:30 11/17/16 14:29 Cefepime HCl 1 gm/ Dextrose 50 ml @ 100 mls/hr Q12HR IVPB 10/17/16 12:30 10/24/16 12:29 10/19/16 09:08 Clonazepam (KlonoPIN) 2 mg DAILY ORAL 10/19/16 09:00 10/26/16 08:59 10/19/16 08:27 Clonidine HCl (Catapres) 0.1 mg EVERY 12 HOURS ORAL 10/17/16 09:00 11/16/16 08:59 10/19/16 08:27 Dextrose/Sodium Chloride (D5ns) 1,000 ml @ 125 mls/hr Q8H IV 10/17/16 05:15 11/16/16 05:14 10/19/16 05:07 Diphenhydramine HCl (Benadryl) 25 mg Q4H PRN IVP Itching 10/17/16 05:15 11/16/16 05:14 Doxepin HCl (SINEquan) 100 mg QHS ORAL 10/18/16 21:00 11/17/16 20:59 10/18/16 22:34 Escitalopram Oxalate (Lexapro) 30 mg DAILY ORAL 10/19/16 09:00 11/18/16 08:59 10/19/16 08:27 Gabapentin (Neurontin) 600 mg THREE TIMES A DAY ORAL 10/17/16 09:00 11/16/16 08:59 10/19/16 08:26 Hydromorphone HCl (Dilaudid) 2 mg Q4H PRN IVP Severe Pain (Pain Scale 7-10) 10/18/16 14:27 10/25/16 14:26 10/19/16 09:09 Lorazepam (Ativan) 2 mg Q6H PRN ORAL For Anxiety 10/18/16 23:30 10/25/16 23:29 10/19/16 01:46 Magnesium Hydroxide (Mom) 30 ml TIDPRN PRN ORAL Constipation 10/18/16 14:30 11/17/16 14:29 Metronidazole (Flagyl) 100 ml @ 100 mls/hr EVERY 8 HOURS IVPB 10/17/16 14:00 10/24/16 13:59 10/19/16 05:07 Nicotine (Nicoderm) 1 patch DAILY@1800 TDERMAL 10/17/16 19:00 11/16/16 18:59 10/18/16 18:43 Ondansetron HCl (Zofran) 4 mg Q4H PRN IVP Nausea & Vomiting 10/17/16 05:15 11/16/16 05:14 10/19/16 08:28 Pantoprazole (Protonix) 80 mg EVERY 12 HOURS ORAL 10/19/16 21:00 11/18/16 20:59 Topiramate 100 mg 100 mg EVERY 12 HOURS ORAL 10/17/16 09:00 11/16/16 08:59 10/19/16 09:09 VAMSHI ALTMAN Oct 19, 2016 10:50
[2016-10-19] MEDS ORDERED: ALPRAZolam 0.5mg tab ORAL ONE (11:00)
[2016-10-19 12:00] VITALS: BP 133/80
--- NOTE | 2016-10-19 14:48 | General Progress Note ---
Progress Note Progress Note Chart reviewed, pt examined, CT reviewed with radiologist. Impression: abdominal pain of unknown etiology, no evidence of intestinal obstruction. Plan : we should check with GI staff to see if atrial of antispasmodics is indicated Rosendo Delacruz MD Oct 19, 2016 14:48
[2016-10-19 15:50] VITALS: BP 131/90
[2016-10-19 20:00] VITALS: BP 148/75
--- NOTE | 2016-10-19 20:19 | Consultation ---
DATE OF CONSULTATION: 10/19/2016 SURGICAL CONSULTATION REASON FOR CONSULTATION: Nausea, vomiting, diarrhea and abdominal pain. HISTORY OF PRESENT ILLNESS: This is a 36-year-old, white female, who presented with the onset of nausea and vomiting four days ago. She denied any symptoms of fever or chills. She reported some left-sided abdominal pain. The patient has a complex history of having had bariatric surgery 12 years ago in the form of a vertical ring volume reduction gastroplasty. She subsequently underwent a pelvic abdominoplasty, which was complicated by a bladder infection in a retained subcutaneous drain resulting in sepsis. She has problems with chronic back pain as well. PAST MEDICAL HISTORY: The patient has a history of sleep disorder and anxiety. PAST SURGICAL HISTORY: Previous surgery vertical gastroplasty and abdominoplasty. ALLERGIES: None known. MEDICATIONS: Lexapro and Prilosec. She is also occasionally taking clonidine for hypertension. SOCIAL HISTORY: Tobacco, one pack per day x20 years. Alcohol, none. She denies any use of illicit drugs. FAMILY HISTORY: Positive for hyperlipidemia. The patient's mother has a mental illness. REVIEW OF SYSTEMS: Includes occasional headaches. She reports occasional problems with bronchitis. She states she had a history of hepatitis C that was treated with six months of interferon therapy. There is no history of renal disorders. She is a 3, para 0, AB 3 female. Last menstrual period was started during this hospitalization. PHYSICAL EXAMINATION: GENERAL: Reveals a well-developed and well-nourished white female. VITAL SIGNS: Temperature 97.8 degrees, blood pressure 133/80, pulse 105, and respirations 18. HEENT: Normocephalic. Pupils are equal and reactive to light. There was no scleral icterus. NECK: Supple without adenopathy. LUNGS: Clear. HEART: Showed a regular rhythm without murmurs or gallops. ABDOMEN: Abdomen was flat and soft. There is a healed low transverse scar from her abdominoplasty. There was no tenderness or guarding in any quadrant. There were no masses. EXTREMITIES: Showed no clubbing, cyanosis, or edema. Peripheral pulses were present. LABORATORY STUDIES: CBC from two days ago showed a white blood count of 7300, hemoglobin 10.9 g%, hematocrit 32.9%, and platelet count 296,000. The serum electrolytes showed a sodium of 140, potassium 3.7, chloride 107, bicarbonate 22, BUN 5, creatinine 0.6, and glucose 82. Alkaline phosphatase was normal at 49. SGOT was normal at 9. SGPT was normal at 11. Lipase was normal at 35, on admission. A CT scan of the abdomen and pelvis was reviewed with the radiologist. There are changes in the gastric area due to the vertical gastroplasty. There was no evidence of intestinal obstruction. Urinalysis was negative. IMPRESSION: Abdominal pain of unknown etiology, suspect narcotic dependent. PLAN: There is no need for surgical intervention at this point. She will not need a gastroenterology follow up. She may benefit from a trial of antispasmodic medication. Rosendo Delacruz M.D. DR: CRAMEN JOB#: [id number] CC:
[2016-10-19] MEDS: Doxepin 25mg Cap ORAL SCH (22:00)
--- NOTE | 2016-10-19 22:32 | General Progress Note ---
Assessment/Plan Assessment/Plan Assessment - Abd pain - N/V - Diarrhea - Chronic pain - s/p gastric reduction surgery Recommendation - flagyl - check stool w/u - follow exam - will consider outpatient egd/colon Subjective Allergies: Coded Allergies: No Known Allergies (Unverified , 10/16/16) Subjective says she is starving wants to advance to regular diet but also wants w/u to find out why "so miserable" getting dilaudid Objective Last 24 Hour Vital Signs Date Time Temp Pulse Resp B/P Pulse Ox O2 Delivery O2 Flow Rate FiO2 10/19/16 20:10 148/75 10/19/16 20:00 96.8 113 20 148/75 100 Room Air 10/19/16 15:50 97.0 129 18 131/90 98 Room Air 10/19/16 12:00 97.8 105 18 133/80 100 Room Air 10/19/16 08:27 132/88 10/19/16 08:00 97.9 114 20 149/89 95 Room Air 10/19/16 05:37 97.4 10/19/16 03:53 97.4 90 18 132/88 98 Room Air 10/19/16 00:00 97.6 110 18 146/91 98 Room Air Intake and Output 10/18/16 10/19/16 19:00 07:00 Intake Total 1265 ml 1820 ml Balance 1265 ml 1820 ml Intake Oral 240 ml 695 ml IV Total 1025 ml 1125 ml # Voids 2 6 Height (Feet): 5 Height (Inches): 7.00 Weight (Pounds): 180 Objective WDWN NCAT supple CTA RRR Soft ND, some (L) sided TTP no edema Nonfocal EPHRAIM CHRISTIE Oct 19, 2016 22:32
[2016-10-20] VITALS (7 sets, daily range): BP systolic 108–157; BP diastolic 56–106
[2016-10-20] MEDS: D5NS 1,000 ML IV SCH ×3 (04:52→21:06)
[2016-10-20] MEDS: metroNIDAZOLE 500mg 100 ML IVPB SCH ×3 (05:01→21:11)
[2016-10-20] MEDS: LORazepam 1mg tab ORAL PRN ×4 (05:49→20:41)
--- NOTE | 2016-10-20 08:01 | General Progress Note ---
Assessment/Plan Problem List: (1) Anxiety disorder ICD Codes: F41.9 - Anxiety disorder, unspecified SNOMED: 965180692 (2) Depression ICD Codes: F32.9 - Major depressive disorder, single episode, unspecified SNOMED: 40839685 (3) Dehydration ICD Codes: E86.0 - Dehydration SNOMED: 83851864 (4) Abdominal pain ICD Codes: R10.9 - Unspecified abdominal pain SNOMED: 03734674 Qualifiers: Qualified Codes: R10.84 - Generalized abdominal pain (5) Vomiting and diarrhea ICD Codes: R11.10 - Vomiting, unspecified; R19.7 - Diarrhea, unspecified SNOMED: 581934265 Status: stable Assessment/Plan cont ivf iv pain meds(limits set) and antiemetics follow up cultures follow up ct- prelim report negative surgery input appreciated- no surgical issues PMD requesting egd/colon- pt is agreeable Subjective ROS Limited/Unobtainable: No Constitutional: Reports: malaise, weakness HEENT: Reports: no symptoms Cardiovascular: Reports: no symptoms Respiratory: Reports: no symptoms Gastrointestinal/Abdominal: Reports: abdominal pain, diarrhea, nausea, vomiting Genitourinary: Reports: no symptoms Neurologic/Psychiatric: Reports: anxiety Endocrine: Reports: no symptoms Hematologic/Lymphatic: Reports: no symptoms Allergies: Coded Allergies: No Known Allergies (Unverified , 10/16/16) All Systems: reviewed and negative except above Subjective ?increased abd pain, slightly less diarrhea and vomiting. c/o anxiety. GI and ID noted. d/w pts PMD . Pt just out of detox/rehab for heroine. has not felt well since receiving treatment for hep c(interferon) Objective Last 24 Hour Vital Signs Date Time Temp Pulse Resp B/P Pulse Ox O2 Delivery O2 Flow Rate FiO2 10/20/16 05:06 97.7 10/20/16 04:00 97.5 83 20 127/73 96 Room Air 10/20/16 00:00 97.7 77 20 108/56 98 Room Air 10/19/16 20:10 148/75 10/19/16 20:00 96.8 113 20 148/75 100 Room Air 10/19/16 15:50 97.0 129 18 131/90 98 Room Air 10/19/16 12:00 97.8 105 18 133/80 100 Room Air 10/19/16 08:27 132/88 10/19/16 08:00 97.9 114 20 149/89 95 Room Air Intake and Output 10/19/16 10/20/16 19:00 07:00 Intake Total 1805 ml 1575 ml Balance 1805 ml 1575 ml Intake Oral 480 ml 500 ml IV Total 1325 ml 1075 ml # Voids 3 8 # Bowel Movements 1 Height (Feet): 5 Height (Inches): 7.00 Weight (Pounds): 180 Objective General Appearance: WD/WN, alert Neck: supple Cardiovascular: normal rate, regular rhythm Respiratory/Chest: lungs clear Abdomen: normal bowel sounds, non tender, soft, no organomegaly Edema: no edema noted Arm (L), no edema noted Arm (R), no edema noted Leg (L), no edema noted Leg (R), no edema noted Pedal (L), no edema noted Pedal (R), no edema noted 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
[2016-10-20] MEDS: MS Contin 15mg tab ORAL SCH (08:32)
[2016-10-20] MEDS: Topiramate 100mg tab ORAL SCH ×2 (08:33→21:05)
--- NOTE | 2016-10-20 10:02 | General Progress Note ---
Progress Note Progress Note Surgery: Patient seen and examined at bedside. no acute events. still with mild abdominal cramping. currently no nausea or emesis. tolerating liquids. + flatus Afebrile, HD stable (tachy at times), abdomen soft, nd, left sided tenderness, multiple prior surgical scars noted. A/P: 36 F w/ abdominal pain, nausea, emesis, diarrhea. Hx of IVDA, sleeve gastrectomy, tummy tuck, breast lift, Hep C s/p INF treatment, digit staph infection which required oral abx. Reviewed CT scan and no obstruction or abnormality seen. No acute surgical intervention necessary IV hydration Follow up stool cultures Appreciate GI and ID input Thank you for allowing us to participate in this patients care. will follow with you. Liu Sotomayor Oct 20, 2016 10:02
--- NOTE | 2016-10-20 10:25 | Infectious Diseases Prog Note ---
Assessment/Plan Assessment/Plan A 1. R/O c.difficile colitis, ? gastroenteritis 2. HPN 3. recent purulent cellulitis of 4th right finger P 1.discontinue cefepime, Flagyl, add Fluconazole 2. will follow up cultures Subjective ROS Limited/Unobtainable: No Respiratory: Reports: other - congestion Gastrointestinal/Abdominal: Reports: nausea, vomiting Genitourinary: Reports: other - feels has yeast infection Allergies: Coded Allergies: No Known Allergies (Unverified , 10/16/16) Objective Vital Signs Last 24 Hour Vital Signs Date Time Temp Pulse Resp B/P Pulse Ox O2 Delivery O2 Flow Rate FiO2 10/20/16 09:32 97.5 10/20/16 08:33 133/82 10/20/16 08:16 97.5 117 21 133/82 99 Room Air 10/20/16 05:06 97.7 10/20/16 04:00 97.5 83 20 127/73 96 Room Air 10/20/16 00:00 97.7 77 20 108/56 98 Room Air 10/19/16 20:10 148/75 10/19/16 20:00 96.8 113 20 148/75 100 Room Air 10/19/16 15:50 97.0 129 18 131/90 98 Room Air 10/19/16 12:00 97.8 105 18 133/80 100 Room Air Height (Feet): 5 Height (Inches): 7.00 Weight (Pounds): 180 General Appearance: no acute distress HEENT: mucous membranes moist Respiratory/Chest: lungs clear Cardiovascular: normal rate Abdomen: soft, non tender Extremities: no edema Skin: other - erythema of 4th right finger Neurologic/Psychiatric: alert, oriented x 3, responsive Current Medications Medications (Trade) Dose Ordered Sig/Markell Route PRN Reason Start Time Stop Time Status Last Admin Dose Admin Acetaminophen (Tylenol) 650 mg Q6H PRN ORAL Mild Pain/Temp > 100.5 10/19/16 11:00 11/18/16 10:59 10/19/16 14:13 Bisacodyl (Dulcolax) 10 mg DAILYPRN PRN RECTAL Constipation 10/18/16 14:30 11/17/16 14:29 Cefepime HCl 1 gm/ Dextrose 50 ml @ 100 mls/hr Q12HR IVPB 10/17/16 12:30 10/24/16 12:29 10/20/16 09:10 Clonazepam (KlonoPIN) 2 mg BID ORAL 10/20/16 09:00 10/27/16 08:59 10/20/16 08:32 Clonidine HCl (Catapres) 0.1 mg EVERY 12 HOURS ORAL 10/17/16 09:00 11/16/16 08:59 10/20/16 08:33 Dextrose/Sodium Chloride (D5ns) 1,000 ml @ 125 mls/hr Q8H IV 10/17/16 05:15 11/16/16 05:14 10/20/16 04:52 Diphenhydramine HCl (Benadryl) 25 mg Q4H PRN IVP Itching 10/17/16 05:15 11/16/16 05:14 10/20/16 04:59 Doxepin HCl (SINEquan) 100 mg QHS ORAL 10/18/16 21:00 11/17/16 20:59 10/18/16 22:34 Escitalopram Oxalate (Lexapro) 30 mg DAILY ORAL 10/19/16 09:00 11/18/16 08:59 10/20/16 08:32 Gabapentin (Neurontin) 600 mg THREE TIMES A DAY ORAL 10/17/16 09:00 11/16/16 08:59 10/20/16 08:33 Hydromorphone HCl (Dilaudid) 2 mg Q4H PRN IVP Severe Pain (Pain Scale 7-10) 10/18/16 14:27 10/25/16 14:26 10/20/16 09:35 Lorazepam (Ativan) 2 mg Q6H PRN ORAL For Anxiety 10/18/16 23:30 10/25/16 23:29 10/20/16 05:49 Magnesium Hydroxide (Mom) 30 ml TIDPRN PRN ORAL Constipation 10/18/16 14:30 11/17/16 14:29 Metronidazole (Flagyl) 100 ml @ 100 mls/hr EVERY 8 HOURS IVPB 10/17/16 14:00 10/24/16 13:59 10/20/16 05:01 Morphine Sulfate (MS Contin) 15 mg DAILY ORAL 10/20/16 09:00 10/27/16 08:59 10/20/16 08:32 Nicotine (Nicoderm) 1 patch DAILY@1800 TDERMAL 10/17/16 19:00 11/16/16 18:59 10/19/16 17:58 Ondansetron HCl (Zofran) 4 mg Q4H PRN IVP Nausea & Vomiting 10/17/16 05:15 11/16/16 05:14 10/19/16 08:28 Pantoprazole (Protonix) 80 mg EVERY 12 HOURS ORAL 10/19/16 21:00 11/18/16 20:59 10/20/16 08:43 Topiramate 100 mg 100 mg EVERY 12 HOURS ORAL 10/17/16 09:00 11/16/16 08:59 10/20/16 08:33 VAMSHI ALTMAN Oct 20, 2016 10:25
[2016-10-20] MEDS ORDERED: D5NS 1000ml IV ONE (10:57)
--- NOTE | 2016-10-20 11:02 | General Progress Note ---
Assessment/Plan Assessment/Plan Assessment - Abd pain - N/V - Diarrhea - Chronic pain - s/p gastric reduction surgery Recommendation - flagyl - check stool w/u - follow exam - EGD in am - colonoscopy at later date or outpt Subjective Allergies: Coded Allergies: No Known Allergies (Unverified , 10/16/16) Subjective tolerating po solids no vomiting wants to proceed with EGD tomorrow wants to hold colonoscopy to next week Objective Last 24 Hour Vital Signs Date Time Temp Pulse Resp B/P Pulse Ox O2 Delivery O2 Flow Rate FiO2 10/20/16 10:05 97.5 10/20/16 09:32 97.5 10/20/16 08:33 133/82 10/20/16 08:16 97.5 117 21 133/82 99 Room Air 10/20/16 04:00 97.5 83 20 127/73 96 Room Air 10/20/16 00:00 97.7 77 20 108/56 98 Room Air 10/19/16 20:10 148/75 10/19/16 20:00 96.8 113 20 148/75 100 Room Air 10/19/16 15:50 97.0 129 18 131/90 98 Room Air 10/19/16 12:00 97.8 105 18 133/80 100 Room Air Intake and Output 10/19/16 10/20/16 19:00 07:00 Intake Total 1805 ml 1700 ml Balance 1805 ml 1700 ml Intake Oral 480 ml 500 ml IV Total 1325 ml 1200 ml # Voids 3 8 # Bowel Movements 1 Height (Feet): 5 Height (Inches): 7.00 Weight (Pounds): 180 Objective WDWN NCAT supple CTA RRR Soft ND, some (L) sided TTP no edema Nonfocal EPHRAIM CHRISTIE Oct 20, 2016 11:02
[2016-10-20] MEDS: Fluconazole 100mg tab ORAL SCH (12:06)
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
[2016-10-20] MEDS: Doxepin 25mg Cap ORAL SCH (21:00)
[2016-10-21] VITALS (11 sets, daily range): BP systolic 87–131; BP diastolic 41–92
[2016-10-21] MEDS: D5NS 1,000 ML IV SCH ×3 (04:28→21:15)
[2016-10-21] MEDS: metroNIDAZOLE 500mg 100 ML IVPB SCH (05:05)
--- NOTE | 2016-10-21 06:26 | General Progress Note ---
Progress Note Progress Note Patient seen and examined this AM. Sleeping comfortable. No complaints. States abdominal pain improved. no n/v/f/c. Micro results with negative c diff and normal allan thus far. tolerating liquids. +flatus and loose BM. A/P: 36 F w/ abd pain, nausea, emesis, diarrhea. No pathology noted on imaging , micro negative thus far, labs normal, clinically improving. No acute surgical intervention necessary. Continue current care and management Will follow with you. Liu Sotomayor Oct 21, 2016 06:26
[2016-10-21] MEDS ORDERED: LR 1000ml ONE (07:00)
[2016-10-21] MEDS ORDERED: Lidocaine 1% MPF 10mg/ml 5ml ONE (07:00)
[2016-10-21] MEDS ORDERED: Propofol 10mg/ml 20ml IV ONE (07:00)
[2016-10-21] MEDS ORDERED: NS 550ML IV ONE (07:07)
--- NOTE | 2016-10-21 07:13 | Pre-Procedure Note/Attestation ---
Pre-Procedure Note/Attestation Complete Prior to Procedure Planned Procedure: not applicable Procedure Narrative: egd Indications for Procedure Pre-Operative Diagnosis: abd pain Attestation I attest that I discussed the nature of the procedure; its benefits; risks and complications; and alternatives (and the risks and benefits of such alternatives ), prior to the procedure, with the patient (or the patient's legal community health program representative). I attest that, if there was a reasonable possibility of needing a blood transfusion, the patient (or the patient's legal community health program representative) was given the [facility] standardized written summary, pursuant to the [place] Jesse Blood Safety Act ([place] Health and Safety Code # 1645, as amended). I attest that I re-evaluated the patient just prior to the surgery and that there has been no change in the patient's H&P, except as documented below: EPHRAIM CHRISTIE Oct 21, 2016 07:13
[2016-10-21] MEDS ORDERED: fentaNYL 100 mcg/2 mL IV PRN (07:15)
[2016-10-21] MEDS ORDERED: Metoclopramide 10mg/2ml Inj IVP PRN (07:15)
--- NOTE | 2016-10-21 07:26 | General Progress Note ---
Assessment/Plan Assessment/Plan Assessment - Abd pain - N/V - improved - Diarrhea - stool Cx and C Diff (-) - Chronic pain - s/p gastric reduction surgery Recommendation - follow exam - EGD - colonoscopy at later date or outpt PROCEDURE ADDENDUM EGD: s/p sleeve gastrectomy small 1-2 cm Hiatal hernia mild GERD with linear erosions Biopsies obtained Subjective Allergies: Coded Allergies: No Known Allergies (Unverified , 10/16/16) Subjective seen in GI lab tolerating PO Objective Last 24 Hour Vital Signs Date Time Temp Pulse Resp B/P Pulse Ox O2 Delivery O2 Flow Rate FiO2 10/21/16 06:37 78 18 98/74 100 10/21/16 04:00 97.7 20 87/41 95 Room Air 10/20/16 21:05 157/106 10/20/16 20:00 98.9 111 23 127/83 99 Room Air 10/20/16 17:02 97.2 102 19 157/106 Bi-pap 100.0 10/20/16 14:21 96.9 10/20/16 13:34 96.9 10/20/16 12:07 96.9 129 21 120/79 99 Room Air 10/20/16 09:32 97.5 10/20/16 08:33 133/82 10/20/16 08:16 97.5 117 21 133/82 99 Room Air Intake and Output 10/20/16 10/21/16 19:00 07:00 Intake Total 2070 ml 1335 ml Output Total 400 ml Balance 2070 ml 935 ml Intake Oral 720 ml 360 ml IV Total 1350 ml 975 ml Output Urine Total 400 ml # Voids 2 4 # Bowel Movements 1 Height (Feet): 5 Height (Inches): 7.00 Weight (Pounds): 179 Objective WDWN NCAT supple CTA RRR Soft ND, some (L) sided TTP no edema Nonfocal EPHRAIM CHRISTIE Oct 21, 2016 07:26
--- NOTE | 2016-10-21 07:28 | Endoscopy Procedure Note ---
Endoscopy Procedure Note Indication for Procedure: abd pain Procedures Performed: EGD Operative Findings/Diagnosis: s/p sleeve gastrectomy, HARINI, HH Anesthesiologist: see notes Anesthesia: MAC Medication Given: see anesthesia record Implant(s) used?: No 50 yrs or older w/o bx or poly: Not Applicable 10yrs. F/U not recommended: Not Applicable If not recommended, why?: EPHRAIM CHRISTIE Oct 21, 2016 07:28
--- NOTE | 2016-10-21 07:30 | Brief Operative Note ---
Immediate Post Operative Note Operative Note Chief Complaint: pain Pre-op Diagnosis: abd pain Procedure: egdbx Post-op Diagnosis: EGD: s/p sleeve gastrectomy small 1-2 cm Hiatal hernia mild GERD with linear erosions Surgeon: Barbara Anesthesiologist: see notes Anesthesia: MAC Specimen: yes Complications: none Condition: unstable Estimated Blood Loss: none Implant(s) used?: No EPHRAIM CHRISTIE Oct 21, 2016 07:30
--- NOTE | 2016-10-21 07:37 | Immediate Post-Op Evaluation ---
Immediate Post-Op Evalulation Immediate Post-Op Evalulation Procedure: EGD Date of Evaluation: Oct 21, 2016 Time of Evaluation: 07:36 IV Fluids: 200 Blood Pressure Systolic: 111 Blood Pressure Diastolic: 65 Pulse Rate: 70 Respiratory Rate: 14 O2 Sat by Pulse Oximetry: 98 Nausea: No Vomiting: No Complications none Patient Status: awake, patent Drug: none ARTURO PEARL CRNA Oct 21, 2016 07:37
--- NOTE | 2016-10-21 07:40 | Anethesia Preoperative Eval ---
Anesthesia Pre-op PMH/ROS General Date of Evaluation: Oct 21, 2016 Time of Evaluation: 07:15 Anesthesiologist: rea ASA Score: ASA 2 Mallampati Score Class I : Soft palate, uvula, fauces, pillars visible Class II: Soft palate, uvula, fauces visible Class III: Soft palate, base of uvula visible Class IV: Only hard plate visible Mallampati Classification: Class II Surgeon: lana Diagnosis: abdominal pain Surgical Procedure: EGD Anesthesia History: none Social History: smoking Family History: no anesthesia problems Allergies: Coded Allergies: No Known Allergies (Unverified , 10/16/16) Medications: see eMAR Past Medical History Cardiovascular: Reports: HTN Pulmonary: Reports: other - smoking Gastrointestinal/Genitourinary: Denies: CRI, ESRD, GERD, other Neurologic/Psychiatric: Reports: depression/anxiety, other - panic disorder Endocrine: Denies: DM, hypothyroidism, other, steroids HEENT: Denies: [place] (L), [place] (R), cataract (L), cataract (R), glaucoma, other Hematology/Immune: Denies: DVT, anemia, bleeding disorder, other Musculoskeletal/Integumentary: Denies: DDD, DJD, OA, RA, edema, other PSxH Narrative: gastric sleeve Anesthesia Pre-op Phys. Exam Physician Exam Last Vital Signs Date Time Temp Pulse Resp B/P Pulse Ox O2 Delivery O2 Flow Rate FiO2 10/21/16 06:37 78 18 98/74 100 10/21/16 04:00 97.7 Room Air 10/20/16 17:02 100.0 Constitutional: NAD Neurologic: CN 2-12 intact Cardiovascular: RRR Respiratory: CTA Gastrointestinal: S/NT/ND Airway Exam Mallampati Classification 3 Mallampati Score: Class II MO: full Neck: thin ROM: full Dentures: no lower, no upper Anesthesia Pre-op A/P Risk Assessment & Plan Plan: mac Status Change Before Surgery: No Pre-Antibiotics Drug: none ARTURO PEARL CRNA Oct 21, 2016 07:40
--- NOTE | 2016-10-21 08:43 | 48 Hour Post Anesthesia Eval ---
Post Anesthesia Evaluation Procedure: EGD Date of Evaluation: Oct 21, 2016 Time of Evaluation: 08:42 Blood Pressure Systolic: 113 0: 64 Pulse Rate: 68 Respiratory Rate: 14 O2 Sat by Pulse Oximetry: 99 Airway: patent Nausea: No Vomiting: No Hydration Status: adequate Mental Status/LOC: patient returned to baseline Post-Anesthesia Complications: none ARTURO PEARL CRNA Oct 21, 2016 08:43
--- NOTE | 2016-10-21 10:04 | General Progress Note ---
Assessment/Plan Problem List: (1) Anxiety disorder ICD Codes: F41.9 - Anxiety disorder, unspecified SNOMED: 626272176 (2) Depression ICD Codes: F32.9 - Major depressive disorder, single episode, unspecified SNOMED: 40582692 (3) Dehydration ICD Codes: E86.0 - Dehydration SNOMED: 19886290 (4) Abdominal pain ICD Codes: R10.9 - Unspecified abdominal pain SNOMED: 34271976 Qualifiers: Qualified Codes: R10.84 - Generalized abdominal pain (5) Vomiting and diarrhea ICD Codes: R11.10 - Vomiting, unspecified; R19.7 - Diarrhea, unspecified SNOMED: 156971647 Status: stable, progressing Assessment/Plan po trial dc planning if tolerates po follow up with pmd Subjective ROS Limited/Unobtainable: No Constitutional: Reports: weakness HEENT: Reports: no symptoms Cardiovascular: Reports: no symptoms Respiratory: Reports: no symptoms Gastrointestinal/Abdominal: Reports: abdominal pain Genitourinary: Reports: no symptoms Neurologic/Psychiatric: Reports: no symptoms Endocrine: Reports: no symptoms Hematologic/Lymphatic: Reports: no symptoms Allergies: Coded Allergies: No Known Allergies (Unverified , 10/16/16) All Systems: reviewed and negative except above Subjective s/p egd- shows gastritis. less pain med requirements. has not eaten today. still very sleepy. just back from egd Objective Last 24 Hour Vital Signs Date Time Temp Pulse Resp B/P Pulse Ox O2 Delivery O2 Flow Rate FiO2 10/21/16 08:43 68 14 99 10/21/16 07:49 68 15 113/64 97 Room Air 10/21/16 07:45 97.4 65 14 111/63 97 Room Air 10/21/16 07:40 69 13 110/63 96 Room Air 10/21/16 07:37 70 14 98 10/21/16 07:35 72 15 109/65 99 Nasal Cannula 3.0 10/21/16 07:30 97.6 65 14 111/65 99 Nasal Cannula 3.0 10/21/16 06:37 78 18 98/74 100 10/21/16 04:00 97.7 20 87/41 95 Room Air 10/20/16 21:05 157/106 10/20/16 20:00 98.9 111 23 127/83 99 Room Air 10/20/16 17:02 97.2 102 19 157/106 Bi-pap 100.0 10/20/16 14:21 96.9 10/20/16 13:34 96.9 10/20/16 12:07 96.9 129 21 120/79 99 Room Air Intake and Output 10/20/16 10/21/16 19:00 07:00 Intake Total 2070 ml 1335 ml Output Total 400 ml Balance 2070 ml 935 ml Intake Oral 720 ml 360 ml IV Total 1350 ml 975 ml Output Urine Total 400 ml # Voids 2 4 # Bowel Movements 1 Height (Feet): 5 Height (Inches): 7.00 Weight (Pounds): 179 Objective General Appearance: WD/WN, alert Neck: supple Cardiovascular: normal rate, regular rhythm Respiratory/Chest: lungs clear Abdomen: normal bowel sounds, non tender, soft, no organomegaly Edema: no edema noted Arm (L), no edema noted Arm (R), no edema noted Leg (L), no edema noted Leg (R), no edema noted Pedal (L), no edema noted Pedal (R), no edema noted Generalized Neurologic: solution sales senior executive II-XII grossly normal, no motor/sensory deficits, alert, responsive TONA SANCHEZ Oct 21, 2016 10:04
[2016-10-21] MEDS ORDERED: MS CONTIN15 MG ORAL (10:07)
[2016-10-21] MEDS ORDERED: PERCOCET 10-321 EAC1 PO (10:07)
[2016-10-21 10:37] LABS: BASOPHILS % (AUTO) 2.4 % (0.0-2.0); EOSINOPHILS % (AUTO) 6.3 % (0.0-3.0); LYMPHOCYTES % (AUTO) 21.4 % (20.0-45.0); MEAN CORPUSCULAR HEMOGLOBIN 27.9 PG (27.0-31.0); MEAN CORPUSCULAR VOLUME 87 FL (80-99); MEAN PLATELET VOLUME 8.3 FL (6.5-10.1); MONOCYTES % (AUTO) 7.8 % (1.0-10.0); NEUTROPHILS % (AUTO) 62.1 % (45.0-75.0); PLATELET COUNT 219 K/UL (150-450); RED BLOOD COUNT 4.26 M/UL (4.20-5.40); RED CELL DISTRIBUTION WIDTH 15.3 % (11.6-14.8); WHITE BLOOD COUNT 5.4 K/UL (4.8-10.8)
[2016-10-21 10:56] LABS: ALANINE AMINOTRANSFERASE 10 U/L (3-33); ALBUMIN/GLOBULIN RATIO 1.3 (1.0-2.7); ANION GAP 16 (5-15); ASPARTATE AMINO TRANSFERASE 16 U/L (5-40); CALCIUM 8.6 mg/dL (8.6-10.2); CARBON DIOXIDE 19 mEQ/L (20-30); CHLORIDE 104 mEQ/L (98-107); CREATININE 0.7 mg/dL (0.5-0.9); GLOMERULAR FILTRATION RATE > 60 mL/min (>60); HEMOLYSIS 23; SODIUM 139 mEQ/L (135-145); TOTAL PROTEIN 5.4 g/dL (6.6-8.7)
[2016-10-21] MEDS: Fluconazole 100mg tab ORAL SCH (11:43)
[2016-10-21] MEDS: MS Contin 15mg tab ORAL SCH (11:44)
[2016-10-21] MEDS: Topiramate 100mg tab ORAL SCH ×2 (11:44→21:33)
--- NOTE | 2016-10-21 11:49 | Infectious Diseases Prog Note ---
Assessment/Plan Assessment/Plan antibiotics : fluconazole, flagyl A 1. gastroenteritis improving 2. HTN P 1. d/c fluconazole 2. d/c flagyl 3. observe off antibiotics Subjective ROS Limited/Unobtainable: Yes Allergies: Coded Allergies: No Known Allergies (Unverified , 10/16/16) Objective Vital Signs Last 24 Hour Vital Signs Date Time Temp Pulse Resp B/P Pulse Ox O2 Delivery O2 Flow Rate FiO2 10/21/16 08:43 68 14 99 10/21/16 07:49 68 15 113/64 97 Room Air 10/21/16 07:45 97.4 65 14 111/63 97 Room Air 10/21/16 07:40 69 13 110/63 96 Room Air 10/21/16 07:37 70 14 98 10/21/16 07:35 72 15 109/65 99 Nasal Cannula 3.0 10/21/16 07:30 97.6 65 14 111/65 99 Nasal Cannula 3.0 10/21/16 06:37 78 18 98/74 100 10/21/16 04:00 97.7 20 87/41 95 Room Air 10/20/16 21:05 157/106 10/20/16 20:00 98.9 111 23 127/83 99 Room Air 10/20/16 17:02 97.2 102 19 157/106 Bi-pap 100.0 10/20/16 14:21 96.9 10/20/16 13:34 96.9 10/20/16 12:07 96.9 129 21 120/79 99 Room Air Height (Feet): 5 Height (Inches): 7.00 Weight (Pounds): 179 Respiratory/Chest: lungs clear Cardiovascular: normal rate, regular rhythm, no gallop/murmur Abdomen: soft, non tender Extremities: no edema Microbiology Date/Time Source Procedure Growth Status 10/20/16 09:30 Stool Clostridium difficile Toxin Assay - Final Complete 10/18/16 16:30 Stool Ova and Parasites - Final Complete 10/18/16 16:30 Stool Ova and Parasite Result 1 - Final Complete 10/18/16 16:30 Stool Stool Culture - Preliminary NO SALMONELLA,SHIGELLA,OR CAMPYLOBACT... Resulted Laboratory Tests Test 10/21/16 10:15 White Blood Count 5.4 K/UL (4.8-10.8) Red Blood Count 4.26 M/UL (4.20-5.40) Hemoglobin 11.9 G/DL (12.0-16.0) L Hematocrit 37.1 % (37.0-47.0) Mean Corpuscular Volume 87 FL (80-99) Mean Corpuscular Hemoglobin 27.9 PG (27.0-31.0) Mean Corpuscular Hemoglobin Concent 32.0 G/DL (32.0-36.0) Red Cell Distribution Width 15.3 % (11.6-14.8) H Platelet Count 219 K/UL (150-450) Mean Platelet Volume 8.3 FL (6.5-10.1) Neutrophils (%) (Auto) 62.1 % (45.0-75.0) Lymphocytes (%) (Auto) 21.4 % (20.0-45.0) Monocytes (%) (Auto) 7.8 % (1.0-10.0) Eosinophils (%) (Auto) 6.3 % (0.0-3.0) H Basophils (%) (Auto) 2.4 % (0.0-2.0) H Sodium Level 139 mEQ/L (135-145) Potassium Level 4.0 mEQ/L (3.4-4.9) Chloride Level 104 mEQ/L (98-107) Carbon Dioxide Level 19 mEQ/L (20-30) L Anion Gap 16 (5-15) H Blood Urea Nitrogen 5 mg/dL (7-23) L Creatinine 0.7 mg/dL (0.5-0.9) Estimat Glomerular Filtration Rate > 60 mL/min (>60) Glucose Level 97 mg/dL (74-106) Calcium Level 8.6 mg/dL (8.6-10.2) Total Bilirubin < 0.2 mg/dL (0.0-1.2) Aspartate Amino Transf (AST/SGOT) 16 U/L (5-40) Alanine Aminotransferase (ALT/SGPT) 10 U/L (3-33) Alkaline Phosphatase 49 U/L (35-104) Total Protein 5.4 g/dL (6.6-8.7) L Albumin 3.1 g/dL (3.5-5.2) L Globulin 2.3 g/dL Albumin/Globulin Ratio 1.3 (1.0-2.7) SERA WALDROP Oct 21, 2016 11:49
[2016-10-21] MEDS ORDERED: D5NS 1000ml IV ONE ×2 (14:58→15:17)
[2016-10-21] MEDS: LORazepam 1mg tab ORAL PRN (17:15)
--- NOTE | 2016-10-21 21:19 | Operative Note - Dictated ---
DATE OF OPERATION: 10/21/2016 PROCEDURE: Upper gastrointestinal endoscopy with enteroscopy and biopsy. SURGEON: Tae Jimenez M.D. ANESTHESIA: Please see the separate anesthesiologist notes for details. PRE-ENDOSCOPIC DIAGNOSIS: Vomiting. POST-ENDOSCOPIC DIAGNOSES: 1. Status post sleeve gastrectomy as expected. 2. A 1 cm hiatal hernia. 3. Mild gastroesophageal reflux disease with mild ring erosions of the lower esophagus. 4. Status post biopsy of the gastric remnant. DESCRIPTION OF PROCEDURE: The procedure, its risks, indications, alternatives, and possible complications were explained to the patient and informed consent was obtained. The patient was then sedated in the left lateral decubitus position. A diagnostic upper endoscope was introduced through the oropharynx and advanced to the duodenum. in the third portion of the duodenum without difficulty. The endoscope was then gradually withdrawn and the mucosa was examined carefully. Examination of the upper gastric mucosa revealed a gastrectomy anatomy with a 1 cm hiatal hernia and some linear esophageal reflux erosions above the gastroesophageal junction. Biopsies of the antrum and midesophagus were sent to pathology for review. The endoscope was removed. The patient was sent to recovery in good condition. COMPLICATIONS: None. RECOMMENDATIONS: 1. Resume oral diet. 2. Follow up biopsy results. 3. Proton pump inhibitor. Tae Jimneez M.D. DR: ZEINA JOB#: [id number] CC:
[2016-10-21] MEDS: Doxepin 25mg Cap ORAL SCH (21:39)
[2016-10-22] VITALS: BP 124/82
[2016-10-22] MEDS: D5NS 1,000 ML IV SCH ×2 (01:29→13:15)
[2016-10-22 04:00] VITALS: BP 109/61
[2016-10-22] MEDS: LORazepam 1mg tab ORAL PRN (06:15)
[2016-10-22 08:00] VITALS: BP 115/64
--- NOTE | 2016-10-22 08:39 | General Progress Note ---
Progress Note Progress Note Pt had EGD yest. showed small hiatal hernia, mild GERD Sleeping well, VSsLaboratory Tests 10/21/16 10:15: White Blood Count 5.4, Red Blood Count 4.26, Hemoglobin 11.9L, Hematocrit 37.1, Mean Corpuscular Volume 87, Mean Corpuscular Hemoglobin 27.9, Mean Corpuscular Hemoglobin Concent 32.0, Red Cell Distribution Width 15.3H, Platelet Count 219, Mean Platelet Volume 8.3, Neutrophils (%) (Auto) 62.1, Lymphocytes (%) (Auto) 21.4, Monocytes (%) (Auto) 7.8, Eosinophils (%) (Auto) 6.3H, Basophils (%) (Auto ) 2.4H, Sodium Level 139, Potassium Level 4.0, Chloride Level 104, Carbon Dioxide Level 19L, Anion Gap 16H, Blood Urea Nitrogen 5L, Creatinine 0.7, Estimat Glomerular Filtration Rate > 60, Glucose Level 97, Calcium Level 8.6, Total Bilirubin < 0.2, Aspartate Amino Transf (AST/SGOT) 16, Alanine Aminotransferase (ALT/SGPT) 10, Alkaline Phosphatase 49, Total Protein 5.4L, Albumin 3.1L, Globulin 2.3, Albumin/Globulin Ratio 1.3 no acute surgical concerns MICHELLE MCFARLAND Oct 22, 2016 08:39
[2016-10-22] MEDS: Topiramate 100mg tab ORAL SCH (09:02)
[2016-10-22] MEDS: MS Contin 15mg tab ORAL SCH (09:02)
--- NOTE | 2016-10-22 09:29 | Discharge Summary ---
DATE OF ADMISSION: 10/17/2016 DATE OF DISCHARGE: 10/22/2016 ADMITTING DIAGNOSES: 1. Abdominal pain. 2. Nausea. 3. Vomiting. 4. Diarrhea. 5. Possible gastroenteritis. DISCHARGE DIAGNOSES: 1. Abdominal pain. 2. Nausea. 3. Vomiting. 4. Diarrhea. 5. Possible gastroenteritis. 6. History of depression. 7. Anxiety. 8. Narcotics dependence. 9. History of substance abuse. HISTORY: The patient is a 36-year-old female. She has a history of a sleeve gastrectomy. The patient had complaints of abdominal pain, nausea, and vomiting. Symptoms are consistent with the gastroenteritis. She had a CAT scan of the abdomen was unremarkable. Stool cultures were negative. The patient continued to have abdominal pain required high doses of intravenous Dilaudid, was later able to contact her primary care doctor and her psychiatrist who is her addiction psychiatrist. The patient apparently had a long history of heroin abuse and has been in and out of drug rehabilitation. Recently, the patient was approached about her prior history. She became defensive and upset. I informed to her that a diagnostic workup was unremarkable and pain medicines will be discontinued. The patient had an upper endoscopy that showed only mild gastritis. Intravenous pain medications were discontinued. The patient refused to leave the hospital. Once again, she was informed that she is medically stable. She has been instructed to follow up with her PMD. I will call the PMD if the . She has any other acute issues. DISCHARGE MEDICATIONS: Please see discharge medication list for discharge medications. DIET: Regular diet. ACTIVITIES: Ad-ross. Kei Rodriguez M.D. DR: JERAMY JOB#: [id number] CC:
--- NOTE | 2016-10-22 10:01 | Infectious Diseases Prog Note ---
Assessment/Plan Assessment/Plan antibiotics : none A 1. gastroenteritis improving 2. HTN P 1. observe off antibiotics Subjective ROS Limited/Unobtainable: Yes Allergies: Coded Allergies: No Known Allergies (Unverified , 10/16/16) Objective Vital Signs Last 24 Hour Vital Signs Date Time Temp Pulse Resp B/P Pulse Ox O2 Delivery O2 Flow Rate FiO2 10/22/16 08:00 97.5 68 18 115/64 95 Room Air 10/22/16 04:00 97.3 50 20 109/61 96 Room Air 10/22/16 00:00 98.1 92 20 124/82 95 Room Air 10/21/16 21:33 120/70 10/21/16 20:40 98.1 10/21/16 20:00 98.2 88 22 120/70 94 Room Air 10/21/16 17:51 98.1 91 22 131/92 94 Room Air 10/21/16 16:00 98.1 91 22 131/92 94 Room Air 10/21/16 13:59 98.4 10/21/16 12:43 98.4 10/21/16 12:13 98.4 10/21/16 11:52 98.4 75 20 113/63 96 Room Air Height (Feet): 5 Height (Inches): 7.00 Weight (Pounds): 179 Respiratory/Chest: lungs clear Cardiovascular: normal rate, regular rhythm, no gallop/murmur Abdomen: soft, non tender Extremities: no edema Microbiology Date/Time Source Procedure Growth Status 10/20/16 09:30 Stool Clostridium difficile Toxin Assay - Final Complete Laboratory Tests Test 10/21/16 10:15 White Blood Count 5.4 K/UL (4.8-10.8) Red Blood Count 4.26 M/UL (4.20-5.40) Hemoglobin 11.9 G/DL (12.0-16.0) L Hematocrit 37.1 % (37.0-47.0) Mean Corpuscular Volume 87 FL (80-99) Mean Corpuscular Hemoglobin 27.9 PG (27.0-31.0) Mean Corpuscular Hemoglobin Concent 32.0 G/DL (32.0-36.0) Red Cell Distribution Width 15.3 % (11.6-14.8) H Platelet Count 219 K/UL (150-450) Mean Platelet Volume 8.3 FL (6.5-10.1) Neutrophils (%) (Auto) 62.1 % (45.0-75.0) Lymphocytes (%) (Auto) 21.4 % (20.0-45.0) Monocytes (%) (Auto) 7.8 % (1.0-10.0) Eosinophils (%) (Auto) 6.3 % (0.0-3.0) H Basophils (%) (Auto) 2.4 % (0.0-2.0) H Sodium Level 139 mEQ/L (135-145) Potassium Level 4.0 mEQ/L (3.4-4.9) Chloride Level 104 mEQ/L (98-107) Carbon Dioxide Level 19 mEQ/L (20-30) L Anion Gap 16 (5-15) H Blood Urea Nitrogen 5 mg/dL (7-23) L Creatinine 0.7 mg/dL (0.5-0.9) Estimat Glomerular Filtration Rate > 60 mL/min (>60) Glucose Level 97 mg/dL (74-106) Calcium Level 8.6 mg/dL (8.6-10.2) Total Bilirubin < 0.2 mg/dL (0.0-1.2) Aspartate Amino Transf (AST/SGOT) 16 U/L (5-40) Alanine Aminotransferase (ALT/SGPT) 10 U/L (3-33) Alkaline Phosphatase 49 U/L (35-104) Total Protein 5.4 g/dL (6.6-8.7) L Albumin 3.1 g/dL (3.5-5.2) L Globulin 2.3 g/dL Albumin/Globulin Ratio 1.3 (1.0-2.7) SERA WALDROP Oct 22, 2016 10:01
--- NOTE | 2016-10-22 11:32 | General Progress Note ---
Assessment/Plan Problem List: (1) Gastritis ICD Codes: K29.70 - Gastritis, unspecified, without bleeding SNOMED: 3640317 (2) Abdominal pain ICD Codes: R10.9 - Unspecified abdominal pain SNOMED: 77340560 Qualifiers: Qualified Codes: R10.84 - Generalized abdominal pain (3) Depression ICD Codes: F32.9 - Major depressive disorder, single episode, unspecified SNOMED: 56616874 (4) Anxiety disorder ICD Codes: F41.9 - Anxiety disorder, unspecified SNOMED: 338206585 Assessment/Plan ppi pain control ? needs pschy eval Subjective ROS Limited/Unobtainable: Yes Allergies: Coded Allergies: No Known Allergies (Unverified , 10/16/16) Subjective c/o abd pain had BM EGD was done yesterday Objective Last 24 Hour Vital Signs Date Time Temp Pulse Resp B/P Pulse Ox O2 Delivery O2 Flow Rate FiO2 10/22/16 10:01 97.5 10/22/16 10:01 97.5 10/22/16 08:00 97.5 68 18 115/64 95 Room Air 10/22/16 04:00 97.3 50 20 109/61 96 Room Air 10/22/16 00:00 98.1 92 20 124/82 95 Room Air 10/21/16 21:33 120/70 10/21/16 20:40 98.1 10/21/16 20:00 98.2 88 22 120/70 94 Room Air 10/21/16 17:51 98.1 91 22 131/92 94 Room Air 10/21/16 16:00 98.1 91 22 131/92 94 Room Air 10/21/16 12:13 98.4 10/21/16 11:52 98.4 75 20 113/63 96 Room Air Intake and Output 10/21/16 10/22/16 19:00 07:00 Intake Total 710 ml 2365 ml Output Total 0 ml Balance 710 ml 2365 ml Intake Oral 360 ml 1240 ml IV Total 350 ml 1125 ml Estimated Blood Loss 0 ml # Voids 3 4 Height (Feet): 5 Height (Inches): 7.00 Weight (Pounds): 179 General Appearance: alert EENT: normal ENT inspection Neck: supple Cardiovascular: normal rate Respiratory/Chest: lungs clear Abdomen: normal bowel sounds, soft, tender Extremities: non-tender VOSOGHI,JOSE Oct 22, 2016 11:32
[2016-10-22 12:00] VITALS: BP 107/60
[2016-10-22] MEDS ORDERED: D5 1/2NS 1000ml IV ONE (14:11)
== END 2016-10-22 14:00 | disposition home or self-care (01) | DRG 392 ==
LOC: EMR 23:06 → 4W 10-17 01:50 → EDBEDREQ 10-17 02:57
PROC: 0DB68ZX Excision of Stomach, Via Natural or Artificial Opening Endoscopic, Diagnostic (ICD-10-PCS; principal; 2016-10-21 07:16)
PROC: 0DB28ZX Excision of Middle Esophagus, Via Natural or Artificial Opening Endoscopic, Diagnostic (ICD-10-PCS; principal; 2016-10-21 07:16)
DX: K52.9 Noninfective gastroenteritis and colitis, unspecified (principal); F11.20 Opioid dependence, uncomplicated; I10 Essential (primary) hypertension; R10.9 Unspecified abdominal pain; F32.9 Major depressive disorder, single episode, unspecified; F41.9 Anxiety disorder, unspecified; F41.0 Panic disorder [episodic paroxysmal anxiety]; F17.200 Nicotine dependence, unspecified, uncomplicated; G89.29 Other chronic pain; M54.9 Dorsalgia, unspecified; Z98.84 Bariatric surgery status; G47.00 Insomnia, unspecified; E86.0 Dehydration; K21.9 Gastro-esophageal reflux disease without esophagitis
CPT/HCPCS: 36415; 74177; 80048; 80053; 81003; 81025; 83690; 85025; 87045; 87493; 94003; 94150; J2405; J2765